=== PATIENT | male | born 1995 | race Caucasian/White ===

== ENCOUNTER 2016-11-07 22:09 | Emergency (ER) | payer BC ==
--- NOTE | 2016-11-07 23:32 | ED ---
Complex/Multi-Sys Presentation - HPI Summary HPI Summary: Patient presents after having had "a lot" of alcohol today starting around 3: 30. His friends estimate his last drink was around 8:30. Apparently he threw up "a lot" and was shivering afterwards, which concerned his friends. He did not lose consciousness, bite his tongue or become incontinent. He does not have a history of seizures. At time of exam he is alert, oriented, and in no acute distress. - History Of Current Complaint Chief Complaint: EDSubstanceAbuse Time Seen by Provider: 11/07/16 23:10 Hx Obtained From: Patient, Family/Bridge Inspector Onset/Duration: Gradual Onset Timing: Intermittent, Lasting: - 30 minutes Severity Currently: None Severity Initially: Severe Associated Signs And Symptoms: Positive: Vomiting, Other - shivering - Allergies/Home Medications Allergies/Adverse Reactions: Allergies Allergy/AdvReac Type Severity Reaction Status Date / Time No Known Allergies Allergy Verified 08/23/15 00:16 PMH/Surg Hx/FS Hx/Imm Hx Previously Healthy: Yes Infectious Disease History: Denies: Traveled Outside the [place] in Last 30 Days - Family History Known Family History: Positive: None - Social History Occupation: Student Lives: Alone Alcohol Use: unk +etoh tonight Substance Use Type: Reports: None Substance Use Comment - Amount & Last Used: unk Smoking Status (MU): Never Smoked Tobacco Review of Systems Positive: Vomiting All Other Systems Reviewed And Are Negative: Yes Physical Exam - Summary Physical Exam Summary: Patient is alert, oriented and seated on stretcher in no acute distress, speaking in clear coherent sentences. Triage Information Reviewed: Yes Vital Signs On Initial Exam: Initial Vitals Temp Pulse Resp Pulse Ox 97.1 F 90 20 100 11/07/16 22:10 11/07/16 22:10 11/07/16 22:10 11/07/16 22:10 Vital Signs Reviewed: Yes Appearance: Positive: Well-Appearing, No Pain Distress, Well-Nourished Skin: Positive: Warm, Skin Color Reflects Adequate Perfusion, Dry, Soft Head/Face: Positive: Normal Head/Face Inspection Eyes: Positive: EOMI, TULIO, Conjunctiva Clear ENT: Positive: Hearing grossly normal, Pharynx normal Neck: Positive: Supple, Nontender Respiratory/Lung Sounds: Positive: Clear to Auscultation, Breath Sounds Present Cardiovascular: Positive: RRR Abdomen Description: Positive: Nontender, Soft Bowel Sounds: Positive: Present Musculoskeletal: Negative: Edema Left, Edema Right Neurological: Positive: Sensory/Motor Intact, Alert, Oriented to Person Place, Time, CN Intact II-III, NV Bundle Intact Distally Psychiatric: Positive: Affect/Mood Appropriate AVPU Assessment: Alert Diagnostics - Vital Signs Vital Signs Temp Pulse Resp BP Pulse Ox 11/07/16 22:15 118/82 11/07/16 22:10 97.1 F 90 20 100 - Laboratory Lab Statement: Any lab studies that have been ordered have been reviewed, and results considered in the medical decision making process. Complex Multi-Symp Course/Dx - Diagnoses Differential Diagnoses/HQI/PQRI: Aspiration, Metabolic Abnormality, Sepsis, Other Provider Diagnoses: Alcohol abuse Discharge - Discharge Plan Condition: Stable Disposition: HOME Patient Education Materials: At-Risk Alcohol Use (ED) [facility] - Additional Instructions: Please follow-up with [facility] if symptoms persist. Return to the emergency department if symptoms worsen.
[2016-11-07 23:48] VITALS: BP 104/63
== END 2016-11-07 23:45 | disposition home or self-care (01) ==
LOC: ED 22:09
DX: F10.10 Alcohol abuse, uncomplicated (principal); R11.10 Vomiting, unspecified
CPT/HCPCS: 99282